=== PATIENT | male | born 1995 | race Caucasian/White ===

== ENCOUNTER → 2017-02-16 | Outpatient (CLI) | payer OTHER ==
[~2017-02-16] MED LIST: GADOBUTROL 7.5 MMOL/7.5 ML PFS ONE
== END | disposition home or self-care (01) ==
LOC: RAD 16:28
PROVIDERS: ATTEND Physician Assistant
DX: N42.83 Cyst of prostate (principal)
CPT/HCPCS: 72197; A9585